=== PATIENT | female | born 1975 | race Caucasian/White ===

== ENCOUNTER → 2016-10-17 | Outpatient (CLI) | payer BC | LOC: LABWHC1 17:14 | PROVIDERS: ATTEND Internal Medicine Interventional Cardiology | DX: E03.9 Hypothyroidism, unspecified (principal) | CPT/HCPCS: 36415; 84439; 84443; 84481 ==

== ENCOUNTER → 2016-12-05 | Outpatient (CLI) | payer BC ==
[2016-12-05 17:06] LABS: Vitamin B12 >1000 pg/mL (239-931)
[2016-12-06 02:02] LABS: ANA w/Reflex to Titer NEGATIVE (NEGATIVE)
== END | disposition home or self-care (01) ==
LOC: LABWHC1 15:42
PROVIDERS: ATTEND Psychiatry & Neurology Neurology
DX: R51 Headache (principal); R42 Dizziness and giddiness
CPT/HCPCS: 36415; 82306; 82533; 82607; 85652; 86038; 86618

== ENCOUNTER → 2016-12-19 | Outpatient (CLI) | payer BC ==
--- NOTE | 2016-12-20 07:57 | MR ---
MR brain and internal auditory canals with and without contrast HISTORY: Dizziness and headaches Multiplanar multisequence and postcontrast images obtained through the brain with small [id number] high-resolution images performed, patient received 10 cc MultiHance IV No comparisons There is no restricted diffusion. Corpus callosum, pituitary, cervical medullary junction, cerebellop ontine angles are normal. The internal auditory canals, cochlea, semicircular canals show symmetric a ppearance. Orbits show symmetric appearance. No abnormal enhancement following contrast administratio n. Brain signal is maintained. There is no hemorrhage or hydrocephalus. Normal vascular flow voids, n o evident mass. Possible small arachnoid cyst omega cisterna magna present medial to the left cerebel lar hemisphere measuring 18 mm. IMPRESSION: Normal brain signal, no cerebellopontine angle mass. Additional findings above, possible arachnoid cyst posterior fossa..
== END | disposition home or self-care (01) ==
LOC: RADMRIMAIN 15:04
PROVIDERS: ATTEND Psychiatry & Neurology Neurology
DX: G35 Multiple sclerosis (principal); I24.9 Acute ischemic heart disease, unspecified; R42 Dizziness and giddiness; R51 Headache; D23.20 Other benign neoplasm of skin of unspecified ear and external auricular canal; R90.89 Other abnormal findings on diagnostic imaging of central nervous system
CPT/HCPCS: 70553; A9577

== ENCOUNTER → 2017-09-25 | Outpatient (CLI) | payer SELFPAY | END | disposition home or self-care (01) | LOC: LABWHC1 10:11 | DX: Z53.9 Procedure and treatment not carried out, unspecified reason (principal) ==